=== PATIENT | male | born 2005 | race Caucasian/White ===

== ENCOUNTER 2024-12-09 18:39 | Emergency (ER) | payer BC, SELFPAY ==
[2024-12-09 18:44] VITALS: BP 137/81
[2024-12-09 19:05] LABS: Hematocrit 42.9 % (39.0-52.0); Hemoglobin 14.6 g/dL (13.0-18.0); Mean Corp Hgb Conc. 34.0 g/dL (33.0-37.0); Mean Corpuscular Volume 86.8 fL (80.0-94.0); Nucleated Red Blood Cells % 0 % (-); Platelet Count 256 10^3/uL (130-400); Red Cell Dist. Width 12.9 % (11.5-14.5)
[2024-12-09 19:38] LABS: ALT (SGPT) 29 U/L (0-50); AST (SGOT) 31 U/L (17-59); Albumin 5.2 g/dl (3.5-5.0); Alkaline Phosphatase 57 U/L (38-126); Blood Urea Nitrogen 21 mg/dl (9-20); Calcium 9.8 mg/dl (8.4-10.2); Carbon Dioxide 25 mmol/L (22-30); Chloride 105 mmol/L (98-107); Glucose 95 mg/dl (70-99); Potassium 4.3 mmol/L (3.5-5.1); Sodium 142 mmol/L (135-145); Total Protein 8.0 g/dl (6.3-8.2); eGFR > 60.00
[2024-12-09 21:00] VITALS: BMI 23.1
--- NOTE | 2024-12-09 21:02 | EDRN ---
Pt had a hair splinter on R forearm that got infected. Pt went to urgent care last night and prescribed bactrim. Pt has had 2 doses so far. Pt notes pain in upper R arm now. Pt marked the area of infection last night and says it has gotten
worse. Additionally, the area is oozing now. No temp taken at home. Temp in urgent care was 98. Pt has had chills. No n/v.
[2024-12-09 21:09] VITALS: BP 118/70
--- NOTE | 2024-12-09 21:43 | ED.SKININJ ---
HPI-Injury
General
Chief Complaint: Skin Problem
Source: patient
Exam Limitations: none
Time Seen by Provider: 12/09/24 20:53
Nursing documentation reviewed up to this point in time: agreed with
History of Present Illness-Injury
Initial Injury comments:
19-year-old male who presented with a painful, red swelling right forearm that started as a small bump on Wednesday. On Wednesday, the patient noted increased redness and pain. The patient suspected an ingrown hair, which he attempted to remove. He
reports progressive worsening of the condition since then. The patient denies any nausea or vomiting or fever. He visited urgent care late last night, where a procedure was performed to drain pus and blood. He was started on
sulfamethoxazole/trimethoprim (Bactrim) and has taken two doses so far. The area is not improving and is spreading slightly past the marked areas so he came here.
Past History
Past History
ED Past Medical History: None
ED Past Surgical History: None
Social History
Tobacco: Non-smoker
Personal: Single
Living: with family
Employment: Employed
Review of Systems
Review of Systems
Allergies reviewed?: Yes
All Other Systems: ROS reviewed and negative except as documented in HPI and ROS
Constitutional: Denies fever
Skin: Reports other (infected right forearm)
Skin Exam
Abscess
Right forearm:
Description of abscess: fluctuant, well organized and draining
Surrounding skin:: reddened around abscess
Phy Exam
Physical Exam
Physical Exam:
GENERAL: No acute distress. A&Ox3.
CONSTITUTIONAL: Afebrile.
RESPIRATORY: Regular respirations, nonlabored, lungs clear.
CARDIOVASCULAR: Regular rate and rhythm, no murmurs, no rubs.
MUSCULOSKELETAL: Moves with ease. Well perfused.
SKIN: Warm, dry, pink. Draining abscess right forearm
PSYCH: Normal mood and affect. Well kept, interactive and appropriate
NEUROLOGIC: Awake, alert and oriented. No focal neurological deficits
Course
Orders/Labs/Results
Orders:
Orders
12/09/24 18:57
Complete Blood Count/With Diff Urgent
Comprehensive Metabolic Panel Urgent
Lactic Acid Q4H
Comment: ON ICE, CANCEL 2ND ORDER IF FIRST LACTIC ACID LEVEL <2
Blood Culture Urgent
GEOVANNA Source: Blood/Venous
Specimen Description:
12/09/24 21:51
Cephalexin Monohydrate [Keflex] 500 mg PO NOW STA
12/09/24 21:52
Ibuprofen [Motrin] 600 mg PO NOW STA
Abnormal Lab Results
12/09/24
18:57
WBC 11.0 H 10^3/uL
(4.8-10.8)
Absolute Neuts (auto) 7.5 H 10^3/uL
(1.4-6.5)
Absolute Monos (auto) 1.3 H 10^3/uL
(0.1-0.6)
Lymphocytes % 16.5 L %
(20.5-51.1)
Monocytes % 11.9 H %
(1.7-9.3)
BUN 21 H mg/dl
(9-20)
Albumin 5.2 H g/dl
(3.5-5.0)
12/09/24 18:57
12/09/24 18:57
Vital Signs
Initial and Last Documented VS:
Initial Vital Signs
Temp Pulse Resp BP Pulse Ox
99.5 F 100 18 137/81 97
12/09/24 18:44 12/09/24 18:44 12/09/24 18:44 12/09/24 18:44 12/09/24 18:44
Last Documented Vital Signs
Temp Pulse Resp BP Pulse Ox
99.2 F 95 14 118/70 98
12/09/24 21:12/09/24 21:09 12/09/24 21:09 12/09/24 21:12/09/24 21:48
Procedures
Incision/Drainage/Joint Aspiration
Right proximal forearm:
Anethesia: 1% Lidocaine with Epi
Preparation: cleaned with alcohol wipe
Type of procedure: incise and drain
Nature of site: abscess
Description of abscess: involves one area
Loculations broken up: Yes
How much fluid was obtained?: small amount
Fluid description: purulent
Treatment: packed with gauze, antibiotics started and other (nonstick and gauze dressing applied)
MDM/Problems Addressed
MDM/Problems Addressed:
19-year-old male who presented with a painful, red swelling right forearm that started as a small bump on Wednesday. On Wednesday, the patient noted increased redness and pain. The patient suspected an ingrown hair, which he attempted to remove. He
reports progressive worsening of the condition since then. The patient denies any nausea or vomiting or fever. He visited urgent care late last night, where a procedure was performed to drain pus and blood. He was started on
sulfamethoxazole/trimethoprim (Bactrim) and has taken two doses so far. The area is not improving and is spreading slightly past the marked areas so he came here.
Afebrile
Expressed pus, will I&D. 13 x 15 cm surrounding erythema. No lymphangitis.
Plan: Add Keflex to Bactrim, patient had a rash as an when he took amoxicillin, no significant adverse reaction so Keflex should be fine. this was explained to mom
Patient tolerated I&D well. Wound packed with gauze, dressing applied. Edges of reddened area marked for observation.
*Pulse Oximetry
SaO2: 98
Oxygen Mode of Delivery: Room air
Patient hypoxic: not evaluated
*Critical Care Note
Total Time (30-74mins, 75-104mins- exclusive of procedures): Not Applicable
ED Attending Note
-
Portions of this chart may have been created with voice recognition software.� Occasional wrong word or��sound alike� substitutions may have occurred due to the inherent limitations of voice recognition software.
Discharge Plan
Departure
Patient Disposition: Home (Routine Discharge)
Date of Disposition: 12/09/24
Time of Disposition: 21:48
Patient with high blood pressure during this ER visit?: No
Condition: Good
Discharge Problem:
Abscess of right forearm
Instructions: Wound Care (DC), Cellulitis (Skin Infection), Adult (DC), Skin Abscess
Prescriptions:
New
cephalexin 500 mg capsule
500 mg PO QID 7 Days Qty: 28 0RF
No Action
cetirizine [Zyrtec] 10 mg Tablet
10 mg PO DAILY
fluticasone propionate [Flonase] 50 mcg/actuation [place],Suspension
1 spray INTRANASAL DAILY
Rx Instructions:
each nostril
sulfamethoxazole-trimethoprim [Bactrim DS] 800-160 mg Tablet
1 tab PO BID
Referrals:
UNKNOWN - PT DOES,NOT KNOW [Family Provider]
Activity Restrictions/Additional Instructions:
Allow the warm water in the shower to run over the area and soak the forearm in warm water for 15 minutes 3 times a day for the next 2 days.
If the packing has not fallen out by Wednesday, remove it
Then cleanse the wound daily with soap and water as usual in the shower, dry it well, apply antibiotic ointment and large Band-Aid. Do this daily until well-healed.
Seek medical care immediately if the red area spreads up the arm more than 2 inches, you develop fever or chills, vomiting, worsening swelling or pain or feeling worse in any way.
Rest with the arm elevated to the level of your heart over the next 2 days as much as you can.
Continue the Bactrim as ordered. Add the Keflex.. I sent a prescription for Keflex to your pharmacy.
Interventions
Interventions:
*Risk Screen - Suicide Last Done: 12/09/24 18:44
*General Assessment Last Done: 12/09/24 18:44
*Neglect/Abuse Screening Last Done: 12/09/24 18:44
*ED- Fall Risk Assessment Last Done: 12/09/24 21:00
*Nursing Disposition Last Done: 12/09/24 22:05
ED-Skin Assessment Last Done: 12/09/24 21:14
Discharge Date and Time
Discharge Date/Time: 12/09/24 22:05
Print Language: [id number]
[2024-12-09] MEDS: MOTRIN 600 MG PO (21:58)
[2024-12-09] MEDS: KEFLEX 500 MG PO (21:58)
== END 2024-12-09 22:05 | disposition home or self-care (01) ==
LOC: EMR 18:39
PROVIDERS: EMERGENCY PHYSICIAN Emergency Medicine
DX: L02.413 Cutaneous abscess of right upper limb (principal)
CPT/HCPCS: 10060; 99283; 80053; 83605; 85025; 87040